=== PATIENT | female | born 1970 | race Caucasian/White ===

== ENCOUNTER 2016-08-10 14:57 | Emergency (ER) | payer BC ==
[~2016-08-10 14:57] MED LIST: /ACETCOD2T PO; /DULO30CA; /ESCI10TA PO; /LOR25TA PO; ANEX75TA PO; BACL10TA2; BUTR10DI2 TD; BUTR5DIS2 TD; CELE-19 PO; CLON-412 PO; CYCL10TA3 PO; CYMB60CA3 PO; DILA2TAB; DUCOLAX; FENT12PA TD; FENT25PA TD; FIBECHW PO; FIBEPOW PO; FISH300C2 PO; FLEXERIL; GABA300C3 PO; HYDR-3565 PO; HYDR4TAB; HYDROCODONE/ACETAMIN; IBUP200T2 PO; IBUP600T; IBUP600T26 PO; IBUP800T OR; IBUP80TA PO; LIDO5DIS; LIDODERM; METAMUCIL; MULTCAP PO; NEUR300C PO; NORC5TAB PO; OPAN10TA16; OTC FIBER PO; OXYC10TA56; OXYC15TA50; OXYCODONE; PROZ10CA; PROZ20CA; PROZ20CA11 PO; SENO8.6T9 PO; SENOKOT S PO; SERT100T; SERT50TA2; SKEL800T5; SOMA350T PO; TPS PAIN TOP; TRAM50TA2; TRAZ50TA; TRAZ50TA2 PO; TRAZ50TA4 PO; VALI2TAB PO; VALI5TAB PO; VICO5TAB; VICO7.5T11 PO; VICODINES TAB; VIIB20TA PO; VOLT1GEL2 TD; XANA0.25; XANA0.5T OR; XANA1TAB2 PO; ZOLO100T PO
--- NOTE | 2016-08-10 15:52 | EDDOCDS ---
Nurse's Notes [facility] Name: Gia Collier Age: 45 yrs Sex: Female : 1970 Arrival Date: 08/10/2016 Time: 14:57 Bed Triage 3 Private MD: No Pcp Diagnosis: Pain in left shoulder Presentation: 08/10 15:01 Presenting complaint: Patient states: Intermittent left shoulder pain for several ld5 months. Pain started to be continuous starting July 26. Seen at urgent care at that time. Pt reports meds given are not helping. Ortho appt on Aug 24. Adult Sepsis Screening: The patient does not have new or worsening altered mentation. Patient's respiratory rate is less than 22. Systolic blood pressure is greater than 100. Patient has a qSOFA score of 0- Negative Sepsis Screen. Suicide/Homicide risk assessment- the patient denies having any suicidal and/or homicidal ideations and does not present with any other emotional, behavioral or mental health complaints. 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 Transition of care: patient was not received from another setting of care. 15:01 Acuity: DINORA Level 4 ld5 15:01 Method Of Arrival: Walkin/Carried/Asstd ld5 Triage Assessment: 15:05 General: Appears in no apparent distress. Pain: Location: left shoulder Pain currently ld5 is 8 out of 10 on a pain scale. Pain began several months ago Is continuous Aggravated by repositioning. HIV screening NA for this visit Offered previously. Neurological: Level of Consciousness is awake, alert. Respiratory: Airway is patent Respiratory effort is even, unlabored. Musculoskeletal: Reports pain with ROM of left shoulder. 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 No active prescriptions but pt has been taking leftover meds - PMHx: Anxiety; Chronic Low Back Pain; Depression; Rheumatoid Arthritis; - PSHx: Appendectomy; marquez rods; Cholecystectomy; Lumbar Fusion; Hysterectomy; - Social history: Smoking status: Patient states was never smoker of tobacco. No barriers to communication noted, The patient speaks fluent Slovak, Speaks appropriately for age. - Family history: Not pertinent. - : The pt / caregiver states he / she is not on anticoagulants. Home medication list is obtained from the patient. - Exposure Risk Screening:: None identified. Screenin:49 Screening information is obtained from the patient. Fall risk: No risks identified. js13 Assistance ADL's: requires no assistance with activities of daily living. Abuse/DV Screen: The patient / caregiver reports he/she is: not in a situation that causes fear, pain or injury. Nutritional screening: No deficits noted. Advance Directives: There is no active DNR order. home support is adequate. Assessment: 15:49 General: Appears in no apparent distress, Behavior is appropriate for age, cooperative. js13 Pain: Pain currently is 4 out of 10 on a pain scale. Neurological: Level of Consciousness is awake, alert. Respiratory: No deficits noted. Derm: Skin is pink, warm & dry. Vital Signs: 15:00 BP 169 / 94; Pulse 93; Resp 16; Temp 98.8(O); Pulse Ox 97% on R/A; Weight 77.11 kg; sew Height 5 ft. 3 in. (160.02 cm); Pain 8/10; 15:48 BP 155 / 92 Sitting (man/reg); jb5 15:00 Body Mass Index 30.11 (77.11 kg, 160.02 cm) [facility] Vitals: 15:00 Log In Time: August 10, 2016 at 14:56. [facility] ED Course: 14:59 Patient visited by Vee Wheatley. sew 14:59 No Pcp is Private Physician. sew 14:59 Patient moved to Waiting sew 15:00 Patient visited by Vee Wheatley. sew 15:00 Patient moved to Pre RCE sew 15:03 Triage Initiated ld5 15:07 Patient visited by Barbara Hamm RN. ld5 15:08 Patient moved to Triage 3 ld5 15:12 Saeid Blakely PA is PHCP. btw 15:12 Trev Del Toro MD is Attending Physician. btw 15:26 Patient visited by Saeid Blakely PA. btw 15:[facility]. btw 15:49 Patient visited by Nataliia Cabrera PCA. jb5 15:49 The patient / caregiver is instructed regarding the plan of care and ED course. js13 15:49 No IV's were initiated during this patient's visit. No procedures done that require js13 assistance. Sling applied to left arm. Patient with positive distal sensation and brisk distal capillary refill after application. 15:51 Patient visited by Nataliia Cabrera PCA. jb5 Order Results: There are currently no results for this order. Outcome: 15:45 Discharge ordered by Provider. btw 15:49 Discharge Assessment: Patient awake, alert and oriented x 3. No cognitive and/or js13 functional deficits noted. Patient verbalized understanding of disposition instructions. patient administered narcotics - no. The following High Risk Discharge criteria are identified: None. Discharged to home ambulatory. Condition: stable. Discharge instructions given to patient, Instructed on discharge instructions, follow up and referral plans. medication usage, Rest, Ice, Compression and Elevation. Demonstrated understanding of instructions, medications, Pt was receptive of discharge instructions/ teaching. Prescriptions given X 1. No special radiology studies were completed. Property :Personal belongings accompany Pt. 15:51 Patient left the ED. js13 Signatures: Nataliia Cabrera PCA CORPORATE TRAVEL COUNSELOR jb5 Saeid Blakely PA PA btw Barbara Hamm,RN RN ld5 Lainey GarciaRN RN js13 Vee Wheatley JORDANA
--- NOTE | 2016-08-10 15:52 | EDDOCDS ---
Physician Documentation [facility] Name: Gia Collier Age: 45 yrs Sex: Female : 1970 Arrival Date: 08/10/2016 Time: 14:57 Bed Triage 3 Private MD: No Pcp Disposition: 08/10/16 15:45 Discharged to Home/Self Care. Impression: Pain in left shoulder. - Condition is Stable. - Discharge Instructions: Shoulder Pain, [id number]. - Prescriptions for Diclofenac Sodium 75 mg Oral Tablet, Delayed Release (E.C.) - take 1 tablet by ORAL route 2 times per day; 30 tablet. - Medication Reconciliation, Local Pharmacy Hours form. - Follow up: Orthopaedics, [facility]; When: Call to arrange an appointment; Reason: Further diagnostic work-up, Recheck today's complaints, Continuance of care. - Problem is an ongoing problem. - Symptoms are unchanged. Historical: - Allergies: Demerol; Tramadol HCl; - Home Meds: 1. No active prescriptions but pt has been taking leftover meds - PMHx: Anxiety; Chronic Low Back Pain; Depression; Rheumatoid Arthritis; - PSHx: Appendectomy; marquez rods; Cholecystectomy; Lumbar Fusion; Hysterectomy; - Social history: Smoking status: Patient states was never smoker of tobacco. No barriers to communication noted, The patient speaks fluent German, Speaks appropriately for age. - Family history: Not pertinent. - : The pt / caregiver states he / she is not on anticoagulants. Home medication list is obtained from the patient. - Exposure Risk Screening:: None identified. 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 3 in. (160.02 cm); Pain 8/10; 15:48 BP 155 / 92 Sitting (man/reg); jb5 15:00 Body Mass Index 30.11 (77.11 kg, 160.02 cm) sew MDM: 15:39 Sling ordered. btw Signatures: Saeid Blakely PA PA btw Barbara Hamm RN RN ld5 Lainey GarciaRN RN js13 JAYLEEND
--- NOTE | 2016-08-14 09:21 | EDDOCDS ---
Physician Documentation [facility] Name: Gia Collier Age: 45 yrs Sex: Female : 1970 Arrival Date: 08/10/2016 Time: 14:57 Bed Triage 3 Private MD: No Pcp Disposition: 08/10/16 15:45 Discharged to Home/Self Care. Impression: Pain in left shoulder. - Condition is Stable. - Discharge Instructions: Shoulder Pain, [id number]. - Prescriptions for Diclofenac Sodium 75 mg Oral Tablet, Delayed Release (E.C.) - take 1 tablet by ORAL route 2 times per day; 30 tablet. - Medication Reconciliation, Local Pharmacy Hours form. - Follow up: Orthopaedics, [facility]; When: Call to arrange an appointment; Reason: Further diagnostic work-up, Recheck today's complaints, Continuance of care. - Problem is an ongoing problem. - Symptoms are unchanged. Historical: - Allergies: Demerol; Tramadol HCl; - Home Meds: 1. No active prescriptions but pt has been taking leftover meds - PMHx: Anxiety; Chronic Low Back Pain; Depression; Rheumatoid Arthritis; - PSHx: Appendectomy; marquez rods; Cholecystectomy; Lumbar Fusion; Hysterectomy; - Social history: Smoking status: Patient states was never smoker of tobacco. No barriers to communication noted, The patient speaks fluent Albanian, Speaks appropriately for age. - Family history: Not pertinent. - : The pt / caregiver states he / she is not on anticoagulants. Home medication list is obtained from the patient. - Exposure Risk Screening:: None identified. 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 3 in. (160.02 cm); Pain 8/10; 15:48 BP 155 / 92 Sitting (man/reg); jb5 15:00 Body Mass Index 30.11 (77.11 kg, 160.02 cm) sew MDM: 15:39 Sling ordered. btw 08/11 09:18 T-Sheet-- Draft Copy was scanned into [employer] and attached to record. [facility] Signatures: Saeid Blakely PA PA btw Dickerson, LauraRN RN ld5 Lainey GarciaRN RN js13 Vee Davenport The chart was reviewed and I authenticate all verbal orders and agree with the evaluation and treatment provided.Attachments: 09:18 T-Sheet-- Draft Copy [facility] Chart Complete MTDD
--- NOTE | 2016-08-14 09:21 | EDDOCDS ---
Physician Documentation [facility] Name: Gia Collier Age: 45 yrs Sex: Female : 1970 Arrival Date: 08/10/2016 Time: 14:57 Bed Triage 3 Private MD: No Pcp Disposition: 08/10/16 15:45 Discharged to Home/Self Care. Impression: Pain in left shoulder. - Condition is Stable. - Discharge Instructions: Shoulder Pain, [id number]. - Prescriptions for Diclofenac Sodium 75 mg Oral Tablet, Delayed Release (E.C.) - take 1 tablet by ORAL route 2 times per day; 30 tablet. - Medication Reconciliation, Local Pharmacy Hours form. - Follow up: Orthopaedics, [facility]; When: Call to arrange an appointment; Reason: Further diagnostic work-up, Recheck today's complaints, Continuance of care. - Problem is an ongoing problem. - Symptoms are unchanged. Historical: - Allergies: Demerol; Tramadol HCl; - Home Meds: 1. No active prescriptions but pt has been taking leftover meds - PMHx: Anxiety; Chronic Low Back Pain; Depression; Rheumatoid Arthritis; - PSHx: Appendectomy; marquez rods; Cholecystectomy; Lumbar Fusion; Hysterectomy; - Social history: Smoking status: Patient states was never smoker of tobacco. No barriers to communication noted, The patient speaks fluent Albanian, Speaks appropriately for age. - Family history: Not pertinent. - : The pt / caregiver states he / she is not on anticoagulants. Home medication list is obtained from the patient. - Exposure Risk Screening:: None identified. 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 3 in. (160.02 cm); Pain 8/10; 15:48 BP 155 / 92 Sitting (man/reg); jb5 15:00 Body Mass Index 30.11 (77.11 kg, 160.02 cm) sew MDM: 15:39 Sling ordered. btw 08/11 09:18 T-Sheet-- Draft Copy was scanned into [employer] and attached to record. [facility] Signatures: Saeid Blakely PA PA btw Dickerson, LauraRN RN ld5 Lainey GarciaRN RN js13 Vee Davenport The chart was reviewed and I authenticate all verbal orders and agree with the evaluation and treatment provided.Attachments: 09:18 T-Sheet-- Draft Copy [facility] Chart Complete MTDD
--- NOTE | 2016-08-14 09:21 | EDDOCDS ---
Nurse's Notes [facility] Name: Gia Collier Age: 45 yrs Sex: Female : 1970 Arrival Date: 08/10/2016 Time: 14:57 Bed Triage 3 Private MD: No Pcp Diagnosis: Pain in left shoulder Presentation: 08/10 15:01 Presenting complaint: Patient states: Intermittent left shoulder pain for several ld5 months. Pain started to be continuous starting July 26. Seen at urgent care at that time. Pt reports meds given are not helping. Ortho appt on Aug 24. Adult Sepsis Screening: The patient does not have new or worsening altered mentation. Patient's respiratory rate is less than 22. Systolic blood pressure is greater than 100. Patient has a qSOFA score of 0- Negative Sepsis Screen. Suicide/Homicide risk assessment- the patient denies having any suicidal and/or homicidal ideations and does not present with any other emotional, behavioral or mental health complaints. 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 Transition of care: patient was not received from another setting of care. 15:01 Acuity: DINORA Level 4 ld5 15:01 Method Of Arrival: Walkin/Carried/Asstd ld5 Triage Assessment: 15:05 General: Appears in no apparent distress. Pain: Location: left shoulder Pain currently ld5 is 8 out of 10 on a pain scale. Pain began several months ago Is continuous Aggravated by repositioning. HIV screening NA for this visit Offered previously. Neurological: Level of Consciousness is awake, alert. Respiratory: Airway is patent Respiratory effort is even, unlabored. Musculoskeletal: Reports pain with ROM of left shoulder. 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 No active prescriptions but pt has been taking leftover meds - PMHx: Anxiety; Chronic Low Back Pain; Depression; Rheumatoid Arthritis; - PSHx: Appendectomy; marquez rods; Cholecystectomy; Lumbar Fusion; Hysterectomy; - Social history: Smoking status: Patient states was never smoker of tobacco. No barriers to communication noted, The patient speaks fluent Thai, Speaks appropriately for age. - Family history: Not pertinent. - : The pt / caregiver states he / she is not on anticoagulants. Home medication list is obtained from the patient. - Exposure Risk Screening:: None identified. Screenin:49 Screening information is obtained from the patient. Fall risk: No risks identified. js13 Assistance ADL's: requires no assistance with activities of daily living. Abuse/DV Screen: The patient / caregiver reports he/she is: not in a situation that causes fear, pain or injury. Nutritional screening: No deficits noted. Advance Directives: There is no active DNR order. home support is adequate. Assessment: 15:49 General: Appears in no apparent distress, Behavior is appropriate for age, cooperative. js13 Pain: Pain currently is 4 out of 10 on a pain scale. Neurological: Level of Consciousness is awake, alert. Respiratory: No deficits noted. Derm: Skin is pink, warm & dry. Vital Signs: 15:00 BP 169 / 94; Pulse 93; Resp 16; Temp 98.8(O); Pulse Ox 97% on R/A; Weight 77.11 kg; sew Height 5 ft. 3 in. (160.02 cm); Pain 8/10; 15:48 BP 155 / 92 Sitting (man/reg); jb5 15:00 Body Mass Index 30.11 (77.11 kg, 160.02 cm) [facility] Vitals: 15:00 Log In Time: August 10, 2016 at 14:56. [facility] ED Course: 14:59 Patient visited by Vee Wheatley. sew 14:59 No Pcp is Private Physician. sew 14:59 Patient moved to Waiting sew 15:00 Patient visited by Vee Wheatley. sew 15:00 Patient moved to Pre RCE sew 15:03 Triage Initiated ld5 15:07 Patient visited by Barbara Hamm RN. ld5 15:08 Patient moved to Triage 3 ld5 15:12 Saeid Blakely PA is PHCP. btw 15:12 Trev Del Toro MD is Attending Physician. btw 15:26 Patient visited by Saeid Blakely PA. btw 15:45 [facility]. btw 15:49 Patient visited by Nataliia Cabrera PCA. jb5 15:49 The patient / caregiver is instructed regarding the plan of care and ED course. js13 15:49 No IV's were initiated during this patient's visit. No procedures done that require js13 assistance. Sling applied to left arm. Patient with positive distal sensation and brisk distal capillary refill after application. 15:51 Patient visited by Nataliia Cabrera PCA. jb5 08/11 09:18 T-Sheet-- Draft Copy was scanned into [employer] and attached to record. [facility] Order Results: There are currently no results for this order. Outcome: 08/10 15:45 Discharge ordered by Provider. bt 15:49 Discharge Assessment: Patient awake, alert and oriented x 3. No cognitive and/or [facility] functional deficits noted. Patient verbalized understanding of disposition instructions. patient administered narcotics - no. The following High Risk Discharge criteria are identified: None. Discharged to home ambulatory. Condition: stable. Discharge instructions given to patient, Instructed on discharge instructions, follow up and referral plans. medication usage, Rest, Ice, Compression and Elevation. Demonstrated understanding of instructions, medications, Pt was receptive of discharge instructions/ teaching. Prescriptions given X 1. No special radiology studies were completed. Property :Personal belongings accompany Pt. 15:51 Patient left the ED. js13 Signatures: Nataliia Cabrera PCA YOUTH SUPPORT WORKER jb5 Saeid Blakely PA PA btw Barbara Hamm,RN RN ld5 Lainey Garcia,RN RN js13 Dioni, Vee Herbert Chart Complete [facility]
== END 2016-08-10 15:51 | disposition home or self-care (01) ==
LOC: M ED 14:57
DX: M25.512 Pain in left shoulder (principal); F41.9 Anxiety disorder, unspecified; G89.29 Other chronic pain; M54.5 Low back pain; F32.9 Major depressive disorder, single episode, unspecified; M06.9 Rheumatoid arthritis, unspecified; Z88.5 Allergy status to narcotic agent

== ENCOUNTER → 2017-03-19 | Outpatient (CLI) | payer BC ==
[~2017-03-19] MED LIST changes: -CELE-19 PO; +CELE1CAP4 PO; +GABA-282 PO; -GABA300C3 PO; -HYDR-3565 PO; +HYDR-3719 PO; +IBUP-1022 PO; -IBUP600T26 PO; +NORC1TAB4 PO; -NORC5TAB PO; +TRAZ50TA11 PO; -TRAZ50TA4 PO
--- NOTE | 2017-03-19 12:20 | REPMRS ---
Patient History The patient states she has not had a clinical breast exam in over a year. Family history of breast cancer in 3 paternal aunts at age 50 or over. Prior mammogram done at [facility] Bilateral: March 19, 2017 - Exam #: [id number] Bilateral CC and MLO view(s) were taken. Technologist: Lainey Luong, Technologist FINDINGS: There are scattered fibroglandular densities. There has been no change in the appearance of the mammogram from the prior studies. There is a mild amount of residual fibroglandular tissue which is fairly symmetric. There is no interval development of dominant mass, architectural distortion, or clustered microcalcification suggestive of malignancy. ASSESSMENT: BI-RADS/ACR category 1 mammogram. Negative. Recommendation Routine screening mammogram in 1 year (for women over age 40). This mammogram was interpreted with the aid of an FDA-approved computer-aided dectection system. Electronically Signed By: Alejandro uLna MD 03/19/17 [id number]
== END ==
LOC: M RAD 11:52
PROVIDERS: ATTEND Physician Assistant
DX: N64.4 Mastodynia (principal); Z80.3 Family history of malignant neoplasm of breast

== ENCOUNTER → 2017-04-06 | Outpatient (CLI) | payer BC ==
[~2017-04-06] MED LIST changes: +DULO1CAP PO; +GABA-279 PO; +LEVO50TA5 PO; +LISI-538 PO; +OMEP20CA3 PO; +TRAM100T18
[2017-04-06 11:17] LABS: BASO % 0.5 % (0.0-1.0); EOS # 0.2 K/mm3 (0.0-0.50); EOS % 2.9 % (0.0-3.0); LYMPH # 2.4 K/mm3 (1.5-4.5); LYMPH % 29.3 % (24.0-44.0); MEAN CORPUSCULAR HEMOGLOBIN 31.1 pg (27.0-33.0); MEAN CORPUSCULAR HGB CONC 33.6 g/dl (32.0-36.5); MEAN CORPUSCULAR VOLUME 92.5 fl (80.0-96.0); MONO # 0.5 K/mm3 (0.0-0.8); MONO % 6.6 % (0.0-5.0); NEUTROPHILS # 4.6 K/mm3 (1.8-7.7); NEUTROPHILS % 59.4 % (36.0-66.0); RED CELL DISTRIBUTION WIDTH 13.5 % (11.5-14.5); WHITE BLOOD COUNT 7.8 K/mm3 (4.0-10.0)
[2017-04-06 11:45] LABS: ALBUMIN 3.6 GM/DL (3.2-5.2); ALBUMIN/GLOBULIN RATIO 0.95 (1.00-1.93); ALKALINE PHOSPHATASE 87 U/L (45-117); ALT/SGPT 32 U/L (12-78); ANION GAP 8 MEQ/L (8-16); AST/SGOT 19 U/L (15-37); BILIRUBIN,TOTAL 0.5 MG/DL (0.2-1.0); BLOOD UREA NITROGEN 13 MG/DL (7-18); CALCIUM LEVEL 8.9 MG/DL (8.5-10.1); CARBON DIOXIDE LEVEL 29 MEQ/L (21-32); CHLORIDE LEVEL 105 MEQ/L (98-107); CHOLESTEROL LEVEL 203 MG/DL (<200); CREATININE FOR GFR 0.84 MG/DL (0.55-1.02); FREE T4 1.02 NG/DL (0.76-1.46); GLOMERULAR FILTRATION RATE > 60.0 (>58); GLUCOSE, FASTING 92 MG/DL (70-105); POTASSIUM SERUM 4.1 MEQ/L (3.5-5.1); SODIUM LEVEL 142 MEQ/L (136-145); TOTAL PROTEIN 7.4 GM/DL (6.4-8.2); TRIGLYCERIDES LEVEL 231 MG/DL (<150)
[2017-04-07 07:26] LABS: CONTROL LINE HPYORI INT CTR LINE PRESENT
== END ==
LOC: M LAB 10:13
PROVIDERS: ATTEND Physician Assistant
DX: I10 Essential (primary) hypertension (principal); K21.9 Gastro-esophageal reflux disease without esophagitis; M54.2 Cervicalgia

== ENCOUNTER 2017-06-25 11:35 | Day surgery (SDC) | payer BC ==
[~2017-06-25] VITALS: Ht 167.6 cm; Wt 76.7 kg
[~2017-06-25 11:35] MED LIST changes: -TRAM100T18; +TRAM100T18 PO
[2017-06-25] MEDS ORDERED: PROPOFOL 200 MG/20 ML VIAL As Ordered ONE (12:26)
[2017-06-25] MEDS ORDERED: fentaNYL 100 MCG/2 ML INJECTION (J3010) As Ordered ONE ×2 (12:26→12:27)
[2017-06-25] MEDS ORDERED: ONDANSETRON 4MG/2ML VIAL (J2405) As Ordered ONE (12:29)
--- NOTE | 2017-06-25 13:04 | ROOR ---
Patient Name: Gia Collier Procedure Date: 06/25/2017 12:27 PM Date of : 1970 Age: 46 Room: [facility] Gender: Female Note Status: Finalized Procedure: Colonoscopy Indications: Iron deficiency anemia, Change in bowel habits, Constipation Providers: Josué Lynch MD Referring MD: Mae PHILLIPS DO Requesting Provider: Medicines: Monitored Anesthesia Care Complications: No immediate complications. Procedure: Pre-Anesthesia Assessment: - Prior to the procedure, a History and Physical was performed, and patient medications and allergies were reviewed. The patient is competent. The risks and benefits of the procedure and the sedation options and risks were discussed with the patient. All questions were answered and informed consent was obtained. Patient identification and proposed procedure were verified by the physician, the nurse and the anesthesiologist in the pre-procedure area. Mental Status Examination: alert and oriented. Airway Examination: normal oropharyngeal airway and neck mobility. Respiratory Examination: clear to auscultation. CV Examination: normal. Prophylactic Antibiotics: The patient does not require prophylactic antibiotics. Prior Anticoagulants: The patient has taken no previous anticoagulant or antiplatelet agents. ASA Grade Assessment: III - A patient with severe systemic disease. After reviewing the risks and benefits, the patient was deemed in satisfactory condition to undergo the procedure. The anesthesia plan was to use monitored anesthesia care (MAC). Immediately prior to administration of medications, the patient was re-assessed for adequacy to receive sedatives. The heart rate, respiratory rate, oxygen saturations, blood pressure, adequacy of pulmonary ventilation, and response to care were monitored throughout the procedure. The physical status of the patient was re-assessed after the procedure. The Colonoscope was introduced through the anus with the intention of advancing to the cecum. The scope was advanced to the sigmoid colon before the procedure was aborted. Medications were given. The colonoscopy was performed without difficulty. The patient tolerated the procedure well. The quality of the bowel preparation was unsatisfactory. No anatomical landmarks were photographed. Scope insertion time was 3 minutes. Scope withdrawal time was 3 minutes. The total duration of the procedure was 6 minutes. Findings: The perianal and digital rectal examinations were normal. A large amount of solid stool was found from rectum to sigmoid colon, precluding visualization. Impression: - Preparation of the colon was unsatisfactory. - Stool from rectum to sigmoid colon. - No specimens collected. Recommendation: - Patient has a contact number available for emergencies. The signs and symptoms of potential delayed complications were discussed with the patient. Return to normal activities tomorrow. Written discharge instructions were provided to the patient. - Resume previous diet. - Continue present medications. - Repeat colonoscopy in 3 months because the bowel preparation was poor. - Return to GI clinic as previously scheduled on 07/10/2017 at 11:15 AM. - Return to primary care physician. Josué Lynch MD Josué Lynch MD 06/25/2017 1:04:13 PM This report has been signed electronically. Number of Addenda: 0 Note Initiated On: 06/25/2017 12:27 PM Estimated Blood Loss: Estimated blood loss: none.
--- NOTE | 2017-06-25 13:44 | ROOR ---
Patient Name: Gia Collier Procedure Date: 06/25/2017 12:27 PM Date of : 1970 Age: 46 Room: [facility] Gender: Female Note Status: Finalized Procedure: Upper GI endoscopy Indications: Dysphagia, Esophageal reflux symptoms that persist despite appropriate therapy Providers: Josué Lynch MD Referring MD: Mae PHILLIPS DO Requesting Provider: Medicines: Monitored Anesthesia Care Complications: No immediate complications. Procedure: Pre-Anesthesia Assessment: - Prior to the procedure, a History and Physical was performed, and patient medications and allergies were reviewed. The patient is competent. The risks and benefits of the procedure and the sedation options and risks were discussed with the patient. All questions were answered and informed consent was obtained. Patient identification and proposed procedure were verified by the physician, the nurse and the compressor repairer in the procedure room. Mental Status Examination: alert and oriented. Airway Examination: normal oropharyngeal airway and neck mobility. Respiratory Examination: clear to auscultation. CV Examination: normal. Prophylactic Antibiotics: The patient does not require prophylactic antibiotics. Prior Anticoagulants: The patient has taken no previous anticoagulant or antiplatelet agents. ASA Grade Assessment: III - A patient with severe systemic disease. After reviewing the risks and benefits, the patient was deemed in satisfactory condition to undergo the procedure. The anesthesia plan was to use monitored anesthesia care (MAC). Immediately prior to administration of medications, the patient was re-assessed for adequacy to receive sedatives. The heart rate, respiratory rate, oxygen saturations, blood pressure, adequacy of pulmonary ventilation, and response to care were monitored throughout the procedure. The physical status of the patient was re-assessed after the procedure. The Endoscope was introduced through the mouth, and advanced to the second part of duodenum. The upper GI endoscopy was accomplished without difficulty. The patient tolerated the procedure well. Findings: Savary-Prescott Grade III (circumferential lesion, erosive or exudative) esophagitis with no bleeding was found in the lower third of the esophagus. Biopsies were taken with a cold forceps for histology. Verification of patient identification for the specimen was done by the physician and nurse using the patient's name, date and medical record number. Estimated blood loss was minimal. A medium-sized hiatal hernia was present. Diffuse mildly erythematous mucosa without bleeding was found in the gastric antrum. Biopsies were taken with a cold forceps for Helicobacter pylori testing. The duodenal bulb and second portion of the duodenum were normal. Biopsies for histology were taken with a cold forceps for evaluation of celiac disease. Impression: - Savary-Prescott Grade III reflux esophagitis. Biopsied. - Medium-sized hiatal hernia. - Erythematous mucosa in the antrum. Biopsied. - Normal duodenal bulb and second portion of the duodenum. Biopsied. Recommendation: - Patient has a contact number available for emergencies. The signs and symptoms of potential delayed complications were discussed with the patient. Return to normal activities tomorrow. Written discharge instructions were provided to the patient. - Resume previous diet. - Continue present medications. - Use Protonix (pantoprazole) 40 mg PO twice daily - to be taken in morning (1/2 hour before breakfast) and at bedtime ( atleast 3 hours after last meal) for 3 months. - Repeat upper endoscopy in 3 months to check healing. - Await pathology results. - Return to GI clinic as previously scheduled on 07/10/2017 at 11:15 AM. - Return to primary care physician. Josué Lynch MD Josué Lynch MD 06/25/2017 1:43:54 PM This report has been signed electronically. Number of Addenda: 0 Note Initiated On: 06/25/2017 12:27 PM Estimated Blood Loss: Estimated blood loss was minimal.
[2017-06-25 13:48] VITALS: BP 116/75
== END 2017-06-25 13:50 | disposition home or self-care (01) ==
LOC: M OPP 11:35
PROVIDERS: ATTEND Internal Medicine Gastroenterology
DX: D50.9 Iron deficiency anemia, unspecified (principal); K59.00 Constipation, unspecified; R13.10 Dysphagia, unspecified; K31.89 Other diseases of stomach and duodenum; K44.9 Diaphragmatic hernia without obstruction or gangrene; K21.0 Gastro-esophageal reflux disease with esophagitis; I10 Essential (primary) hypertension; E03.9 Hypothyroidism, unspecified; R12 Heartburn; M19.90 Unspecified osteoarthritis, unspecified site; M54.9 Dorsalgia, unspecified; M79.7 Fibromyalgia; M25.60 Stiffness of unspecified joint, not elsewhere classified; F41.9 Anxiety disorder, unspecified; F32.9 Major depressive disorder, single episode, unspecified; R51 Headache; R56.9 Unspecified convulsions; Z80.3 Family history of malignant neoplasm of breast; Z80.8 Family history of malignant neoplasm of other organs or systems; Z88.5 Allergy status to narcotic agent; Z79.899 Other long term (current) drug therapy
CPT/HCPCS: 43239; 45378; 88305; J2405; J3010

== ENCOUNTER 2017-07-17 17:09 | Emergency (ER) | payer BC ==
[~2017-07-17] VITALS: Ht 162.6 cm; Wt 81.8 kg
[2017-07-17] MEDS ORDERED: NS 1,000 ML IV SCH (17:38)
[2017-07-17] MEDS ORDERED: SUCR1TAB56 PO (17:38)
[2017-07-17] MEDS ORDERED: PANT40TA2 PO (17:38)
[2017-07-17 18:17] LABS: BASO # 0.1 10^3/uL (0.0-0.2); BASO % 0.7 % (0.0-1.0); EOS # 0.2 10^3/uL (0.0-0.50); EOS % 2.7 % (0.0-3.0); IMMATURE GRANULOCYTE % 0.4 % (0-0); LYMPH % 25.1 % (24.0-44.0); MEAN CORPUSCULAR HEMOGLOBIN 30.5 pg (27.0-33.0); MEAN CORPUSCULAR HGB CONC 32.7 g/dl (32.0-36.5); MEAN CORPUSCULAR VOLUME 93.3 fl (80.0-96.0); MONO # 0.5 10^3/uL (0.0-0.8); MONO % 6.7 % (0.0-5.0); NEUTROPHILS # 5.2 10^3/uL (1.8-7.7); NEUTROPHILS % 64.4 % (36.0-66.0); PLATELET COUNT, AUTOMATED 352 10^3/uL (150-450); RED CELL DISTRIBUTION WIDTH 13.2 % (11.5-14.5); WHITE BLOOD COUNT 8.1 10^3/uL (4.0-10.0)
[2017-07-17 18:34] LABS: MUCUS, URINE RFX SMALL (NEGATIVE); SPECIFIC GRAVITY UR AUTO RFX 1.015 (1.002-1.035); SQUAM EPITHELIAL CELL UR AURFX 5 /HPF (0-6)
[2017-07-17 18:36] LABS: ALBUMIN 3.9 GM/DL (3.2-5.2); ALBUMIN/GLOBULIN RATIO 0.91 (1.00-1.93); ALKALINE PHOSPHATASE 108 U/L (45-117); ALT/SGPT 59 U/L (12-78); ANION GAP 9 MEQ/L (8-16); AST/SGOT 34 U/L (7-37); BILIRUBIN,DIRECT 0.1 MG/DL (0.0-0.2); BILIRUBIN,TOTAL 0.3 MG/DL (0.2-1.0); BLOOD UREA NITROGEN 15 MG/DL (7-18); CALCIUM LEVEL 8.9 MG/DL (8.5-10.1); CARBON DIOXIDE LEVEL 25 MEQ/L (21-32); CHLORIDE LEVEL 101 MEQ/L (98-107); CREATININE FOR GFR 0.89 MG/DL (0.55-1.02); GLOMERULAR FILTRATION RATE > 60.0 (>58); GLUCOSE, FASTING 96 MG/DL (70-105); MAGNESIUM LEVEL 2.3 MG/DL (1.8-2.4); PHOSPHORUS LEVEL 1.5 MG/DL (2.5-4.9); POTASSIUM SERUM 3.9 MEQ/L (3.5-5.1); SODIUM LEVEL 135 MEQ/L (136-145); TOTAL PROTEIN 8.2 GM/DL (6.4-8.2)
--- NOTE | 2017-07-17 18:40 | REPUSA ---
HISTORY: Trauma. COMPARISON: No relevant comparison is available at the time of interpretation. Total DLP head and C-spine 1201.3 mGy*cm CT C-SPINE with reformations: C1 through T1: Neural rings intact without fracture. Dens intact. Central canal: Cervical spondylosis from C3-4 through C6-7 which produces chronic narrowing of the ce ntral canal and neural foramina. There is facet arthrosis at C7-T1. Alignment (by reformations): No significant listhesis. IMPRESSION: Degenerative spondylosis from C3-4 through C6-7 without acute fracture.
[2017-07-17 18:44] LABS: METHADONE URINE NEGATIVE (NEGATIVE)
[2017-07-17] MEDS ORDERED: NEUTRA-PHOS 1.25 GM PACKET PO ONE (18:45)
--- NOTE | 2017-07-17 18:50 | REPUSA ---
HISTORY: Trauma. COMPARISON: April 10, 2009. Total DLP head and C-spine 1201.3 mGy*cm TECHNIQUE: Head CT without contrast Brain: No intracranial hemorrhage or parenchymal edema. Calvarium: No depressed fractures. Sinuses (partially visualized): No hemorrhage fluid levels. IMPRESSION: No intracranial hemorrhage or fracture.
--- NOTE | 2017-07-17 19:10 | REPUSA ---
HISTORY: Trauma. COMPARISON: December 24, 2008. Total DLP 483.3 mGy*cm CT L-SPINE with reformations: L1 through S1: Patient is status post scoliosis repair, without acute fracture. Vertebral body height s normal, without compression fracture. Central canal: Patent without encroachment. Neural foramina: Chronic neural foraminal narrowing at L4-5 and L5-S1 Alignment (by reformations): Moderate levoscoliosis centered at L2-3, with right sided Aden josef extending from T10 to L4. IMPRESSION: Moderate levoscoliosis with Aden josef fusion, without acute fracture. Compared to December 2008 exam, there has been L4-5 and L5-S1 anterior fusion.
--- NOTE | 2017-07-17 19:46 | REP ---
CHEST PORTABLE, SINGLE VIEW: Single view of the chest is performed. Prior study of 01/25/2011. There is poor ventilation of mild discoid atelectasis. Heart is normal in size. There is no acute infiltrate. Mediastinal silhouette is unremarkable and unchanged. IMPRESSION: No acute infiltrate. Signed by Alejandro Luna MD 07/18/2017 09:19 A
[2017-07-17 20:15] VITALS: BP 170/100
--- NOTE | 2017-07-18 04:48 | ECGEPIP ---
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
== END 2017-07-17 20:24 | disposition home or self-care (01) ==
LOC: EDBD 17:09 → M ED 17:09
DX: R56.9 Unspecified convulsions (principal); I10 Essential (primary) hypertension; M51.36 Other intervertebral disc degeneration, lumbar region; G89.29 Other chronic pain; D50.9 Iron deficiency anemia, unspecified; M79.7 Fibromyalgia; M06.9 Rheumatoid arthritis, unspecified; Z79.899 Other long term (current) drug therapy; Z88.8 Allergy status to other drugs, medicaments and biological substances; Z98.890 Other specified postprocedural states

== ENCOUNTER → 2017-12-17 | Outpatient (CLI) | payer BC | LOC: M RAD 15:37 | DX: M54.2 Cervicalgia (principal); M41.34 Thoracogenic scoliosis, thoracic region; M54.5 Low back pain; M47.812 Spondylosis without myelopathy or radiculopathy, cervical region; M51.27 Other intervertebral disc displacement, lumbosacral region | CPT/HCPCS: 72131 ==

== ENCOUNTER → 2018-05-23 | Outpatient (CLI) | payer BC | LOC: M PAIN 10:30 | DX: M54.2 Cervicalgia (principal); M79.18 Myalgia, other site; M47.812 Spondylosis without myelopathy or radiculopathy, cervical region; M25.551 Pain in right hip; M70.61 Trochanteric bursitis, right hip; F33.0 Major depressive disorder, recurrent, mild; F40.01 Agoraphobia with panic disorder; I10 Essential (primary) hypertension; M19.90 Unspecified osteoarthritis, unspecified site; K21.9 Gastro-esophageal reflux disease without esophagitis; Z79.899 Other long term (current) drug therapy; Z88.5 Allergy status to narcotic agent | CPT/HCPCS: G0463 ==

== ENCOUNTER → 2019-01-23 | Outpatient (CLI) | payer BC ==
[~2019-01-23] MED LIST changes: -/ACETCOD2T PO; -/DULO30CA; -/ESCI10TA PO; +ACET1TAB15 PO; +CYMB1CAP5; +FENT12DI12 TD; -FENT12PA TD; +FENT25DI33 TD; -FENT25PA TD; +GABA-1171 PO; -GABA-279 PO; -GABA-282 PO; +GABA-843 PO; +LEXA1TAB PO; -NORC1TAB4 PO; +NORC1TAB7 PO; +PANT40TA3 PO; +SUCR1TAB56 PO; +TRAZ-252 PO; -TRAZ50TA11 PO
[2019-01-23 12:04] LABS: ALBUMIN 3.5 GM/DL (3.2-5.2); ALT/SGPT 34 U/L (12-78); BILIRUBIN,TOTAL 0.2 MG/DL (0.2-1.0); BLOOD UREA NITROGEN 13 MG/DL (7-18); CARBON DIOXIDE LEVEL 27 MEQ/L (21-32); CHLORIDE LEVEL 107 MEQ/L (98-107); CHOLESTEROL LEVEL 153 MG/DL (<200); CHOLESTEROL RISK RATIO 4.135 (<5); CREATININE FOR GFR 0.74 MG/DL (0.55-1.30); FREE T4 0.83 NG/DL (0.76-1.46); GLOMERULAR FILTRATION RATE > 60.0 (>58); GLUCOSE, FASTING 91 MG/DL (70-100); HDL CHOLESTEROL 37 MG/DL (>40); LDL CHOLESTEROL 81 MG/DL (<100); NON-HDL-C 116 MG/DL; POTASSIUM SERUM 4.1 MEQ/L (3.5-5.1); SODIUM LEVEL 142 MEQ/L (136-145); TOTAL PROTEIN 7.2 GM/DL (6.4-8.2); TRIGLYCERIDES LEVEL 176 MG/DL (<150)
== END ==
LOC: M LAB 10:19
PROVIDERS: ATTEND Physician Assistant
DX: I10 Essential (primary) hypertension (principal)

== ENCOUNTER → 2019-05-23 | Outpatient (CLI) | payer BC ==
[~2019-05-23] MED LIST changes: -DULO1CAP PO; +DULO1CAP4 PO; -OMEP20CA3 PO; +OMEP20CA4 PO
--- NOTE | 2019-05-23 13:57 | REP ---
Pelvis left hip: Three views. History: Left hip pain. Chronic left hip pain. Acutely worsening over last week. Findings: Postoperative changes are seen in the lumbosacral junction. AP view of the pelvis shows an intact bony pelvic ring. There is spurring of the SI joints and minimal symphysis pubis spurring is seen. There is bilateral acetabular osteophyte formation consistent with hip osteoarthritis. AP and frog-leg views of the left hip show no evidence of fracture or erosive change. Impression: Osteoarthritic changes. No acute bony abnormality. Electronically Signed by Von James MD 05/23/2019 01:49 P
== END ==
LOC: M WUC 13:28
PROVIDERS: ATTEND Physician Assistant
DX: M25.552 Pain in left hip (principal)

== ENCOUNTER → 2020-03-17 | Outpatient (REF) | payer BC ==
[~2020-03-17] MED LIST changes: +OMEP1CAP73 PO; -OMEP20CA4 PO; +PANT40TA29 PO; -PANT40TA3 PO
== END ==
LOC: M LAB REF 08:07
PROVIDERS: ATTEND Physician Assistant
DX: J02.9 Acute pharyngitis, unspecified (principal)

== ENCOUNTER → 2020-07-08 | Outpatient (CLI) | payer BC ==
--- NOTE | 2020-07-09 08:27 | REPVR ---
PROCEDURE INFORMATION: Exam: MR Cervical Spine Without and With Contrast Exam date and time: 07/09/2020 1:56 AM Age: 49 years old Clinical indication: Neck pain TECHNIQUE: Imaging protocol: Multiplanar magnetic resonance images of the cervical spine without and with intravenous contrast. Contrast material: PROHANCE; Contrast volume: 19 ml; Contrast route: INTRAVENOUS (IV); COMPARISON: CT Spine,cervical w/o contrast 12/17/2017 3:45 PM FINDINGS: Vertebrae: Unremarkable. Spinal cord: Normal signal. C2-C3: There is disc desiccation. C3-C4: There is disc space narrowing and desiccation. There are moderate degenerative end plate changes at this level. There is a moderate disc/osteophyte complex that flattens the ventral thecal sac. There is moderate bilateral uncovertebral joint arthropathy. There is mild bilateral neuroforaminal narrowing. There is mild spinal canal stenosis. C4-C5: There is disc space narrowing and desiccation. There are moderate degenerative end plate changes at this level. There is a moderate disc/osteophyte complex, partial toward the right, that flattens the ventral thecal sac and compromises the right neural foramen. There is moderate bilateral uncovertebral joint arthropathy. There is mild bilateral neuroforaminal narrowing. There is mild spinal canal stenosis. C5-C6: There is disc space narrowing and desiccation. There are moderate degenerative end plate changes at this level. There is a moderate disc/osteophyte complex that flattens the ventral thecal sac. There is moderate bilateral uncovertebral joint arthropathy. There is mild bilateral neuroforaminal narrowing. C6-C7: There is a moderate disc/osteophyte complex, partial toward the left, that flattens the ventral thecal sac and compromises the left neural foramen. There is effacement of the ventral subarachnoid space and indentation of the ventral cervical cord. There is bilateral uncovertebral joint arthropathy, worse on the left. There is mild bilateral neuroforaminal narrowing, left worse than right. C7-T1: There is disc desiccation. There is no abnormal enhancement. IMPRESSION: Multilevel degenerative changes with variable degrees of spinal canal and neuroforaminal narrowing. Please see details above. Electronically signed by: Jimmy Samuels On 07/09/2020 08:27:59 AM
== END ==
LOC: M RAD 11:03
DX: M50.31 Other cervical disc degeneration, high cervical region (principal); M50.321 Other cervical disc degeneration at C4-C5 level; M50.322 Other cervical disc degeneration at C5-C6 level; M50.323 Other cervical disc degeneration at C6-C7 level

== ENCOUNTER → 2020-08-11 | Outpatient (CLI) | payer BC | LOC: M LABSMTC 11:15 | PROVIDERS: ATTEND Family Medicine | DX: Z20.822 Contact with and (suspected) exposure to COVID-19 (principal) ==

== ENCOUNTER → 2020-08-24 | Outpatient (CLI) | payer BC ==
[~2020-08-24] MED LIST changes: +GABA-282 PO; -GABA-843 PO; -LISI-538 PO; +LISI20TA33 PO
[2020-08-24 13:37] LABS: BASO # 0.1 10^3/uL (0.0-0.2); BASO % 0.8 % (0.0-1.0); EOS # 0.2 10^3/uL (0.0-0.5); EOS % 3.9 % (0.0-3.0); HEMATOCRIT 34.2 % (36.0-47.0); HEMOGLOBIN 10.6 g/dl (12.0-15.5); LYMPH # 1.9 10^3/uL (1.5-5.0); MEAN CORPUSCULAR HEMOGLOBIN 27.7 pg (27.0-33.0); MEAN CORPUSCULAR VOLUME 89.5 fl (80.0-96.0); MONO # 0.5 10^3/uL (0.0-0.8); MONO % 8.9 % (0.0-5.0); NEUTROPHILS # 3.3 10^3/uL (1.5-8.5); NEUTROPHILS % 55.2 % (36.0-66.0); PLATELET COUNT, AUTOMATED 315 10^3/uL (150-450); RED BLOOD COUNT 3.82 10^6/uL (4.00-5.40)
[2020-08-24 14:09] LABS: ALBUMIN 3.8 GM/DL (3.2-5.2); ALT/SGPT 23 U/L (12-78); BILIRUBIN,TOTAL 0.3 MG/DL (0.2-1.0); BLOOD UREA NITROGEN 11 MG/DL (7-18); CALCIUM LEVEL 9.4 MG/DL (8.5-10.1); CARBON DIOXIDE LEVEL 27 MEQ/L (21-32); CHLORIDE LEVEL 104 MEQ/L (98-107); CHOLESTEROL LEVEL 208 MG/DL (<200); CHOLESTEROL RISK RATIO 5.777 (<5); CREATININE FOR GFR 0.82 MG/DL (0.55-1.30); FREE T4 0.88 NG/DL (0.76-1.46); GLOMERULAR FILTRATION RATE > 60.0 (>58); GLUCOSE, FASTING 106 MG/DL (70-100); HDL CHOLESTEROL 36 MG/DL (>40); LDL CHOLESTEROL 99 MG/DL (<100); NON-HDL-C 172 MG/DL; POTASSIUM SERUM 4.2 MEQ/L (3.5-5.1); SODIUM LEVEL 136 MEQ/L (136-145); TOTAL PROTEIN 7.8 GM/DL (6.4-8.2); TRIGLYCERIDES LEVEL 363 MG/DL (<150)
== END ==
LOC: M LAB 12:36
PROVIDERS: ATTEND Physician Assistant
DX: Z00.00 Encounter for general adult medical examination without abnormal findings (principal)

== ENCOUNTER → 2020-10-21 | Outpatient (REF) | payer BC ==
[2020-10-21 22:02] LABS: INFLUENZA A AMPLIFICATION NEGATIVE (NEGATIVE); INFLUENZA B AMPLIFICATION NEGATIVE (NEGATIVE)
== END ==
LOC: M LAB REF 21:07
PROVIDERS: ATTEND Physician Assistant
DX: R05 Cough (principal); M79.10 Myalgia, unspecified site

== ENCOUNTER → 2020-11-04 | Outpatient (CLI) | payer BC | LOC: M WHC 12:43 | PROVIDERS: ATTEND Physician Assistant | DX: Z12.31 Encounter for screening mammogram for malignant neoplasm of breast (principal); Z53.9 Procedure and treatment not carried out, unspecified reason ==

== ENCOUNTER → 2020-11-25 | Outpatient (CLI) | payer BC ==
--- NOTE | 2020-11-25 11:02 | REP ---
INDICATION: N64.4 GLENN DIAG MAMMO/MASTODYNIA; GLENN BREAST U/S/MASTODYNIA. Patient reports bilateral inferior breast pain pump, particularly on the right intermittently over the last 6 months. COMPARISON: Mammography reviewed dated January 20, 2019, March 19, 2017, and October 15, 2013. TECHNIQUE: Bilateral CC and MLO) view(s) were taken. 3D my mammography was acquired bilaterally and targeted bilateral breast sonography is performed. FINDINGS: Breast parenchyma is predominantly fat replaced. No dominant density is seen in either breast. No micro calcific grouping or architectural distortion is seen. No worrisome skin changes appreciated. 3D mammography images show no additional abnormality. Normal appearing lymph nodes are seen in each axilla unchanged. The Volpara volumetric breast density pattern is a Targeted bilateral breast sonography: The inferior half of each breast is scanned, 3:00 to 9:00. Fairly homogeneous fibroglandular echotexture is seen bilaterally. No cyst, mass, acoustic shadowing or other notable finding by ultrasound.. IMPRESSION: BIRADS/ACR category 1 negative mammogram and ultrasound findings. This patient's Tyrer-Cuzick lifetime breast cancer risk assessment score is 12.1%. This mammogram was interpreted with the aid of an FDA-approved computer-aided detection system. The patient states she had a clinical breast exam in over a year ago. The patient letter being requested is M1. RECOMMENDATION: Repeat screening mammography recommended 1 year (for women over 40). <Electronically signed by Zay James > 11/25/20 [id number]
== END ==
LOC: M WHC 09:04
PROVIDERS: ATTEND Physician Assistant
DX: N64.4 Mastodynia (principal)

== ENCOUNTER → 2021-01-06 | Outpatient (CLI) | payer BC ==
[2021-01-06 13:35] LABS: BASO # 0.1 10^3/uL (0.0-0.2); BASO % 1.3 % (0.0-1.0); EOS # 0.4 10^3/uL (0.0-0.5); EOS % 6.6 % (0.0-3.0); HEMATOCRIT 35.5 % (36.0-47.0); HEMOGLOBIN 10.7 g/dl (12.0-15.5); LYMPH # 2.2 10^3/uL (1.5-5.0); MEAN CORPUSCULAR HEMOGLOBIN 27.5 pg (27.0-33.0); MEAN CORPUSCULAR HGB CONC 30.1 g/dl (32.0-36.5); MEAN CORPUSCULAR VOLUME 91.3 fl (80.0-96.0); MONO # 0.5 10^3/uL (0.0-0.8); MONO % 9.2 % (2.0-8.0); NEUTROPHILS # 2.3 10^3/uL (1.5-8.5); NEUTROPHILS % 42.3 % (36.0-66.0); PLATELET COUNT, AUTOMATED 389 10^3/uL (150-450); RED BLOOD COUNT 3.89 10^6/uL (4.00-5.40); WHITE BLOOD COUNT 5.5 10^3/uL (4.0-10.0)
[2021-01-06 14:04] LABS: ALBUMIN 3.7 GM/DL (3.2-5.2); ALT/SGPT 34 U/L (12-78); BILIRUBIN,TOTAL 0.3 MG/DL (0.2-1.0); BLOOD UREA NITROGEN 9 MG/DL (7-18); CALCIUM LEVEL 9.4 MG/DL (8.5-10.1); CARBON DIOXIDE LEVEL 28 MEQ/L (21-32); CHLORIDE LEVEL 106 MEQ/L (98-107); CHOLESTEROL LEVEL 174 MG/DL (<200); CHOLESTEROL RISK RATIO 5.117 (<5); FERRITIN 19 NG/ML (8-252); FREE T4 0.97 NG/DL (0.76-1.46); GLOMERULAR FILTRATION RATE > 60.0 (>51); GLUCOSE, FASTING 99 MG/DL (70-100); HDL CHOLESTEROL 34 MG/DL (>40); IRON (FE) 34 UG/DL (50-170); LDL CHOLESTEROL 79 MG/DL (<100); NON-HDL-C 140 MG/DL; PERCENT SATURATION 8.3 % (13.2-45.0); SODIUM LEVEL 139 MEQ/L (136-145); THYROID STIMULATING HORMONE 0.607 uIU/ML (0.358-3.740); TOTAL IRON BINDING CAPACITY 409 UG/DL (250-450); TOTAL PROTEIN 7.8 GM/DL (6.4-8.2); TRIGLYCERIDES LEVEL 306 MG/DL (<150)
[2021-01-06 14:06] LABS: FOLATE 7.4 NG/ML
[2021-01-06 14:11] LABS: VITAMIN B12 LEVEL 521 PG/ML
[2021-01-06 14:34] LABS: HEMOGLOBIN A1c 5.5 %
== END ==
LOC: M LAB 12:50
PROVIDERS: ATTEND Physician Assistant
DX: D64.9 Anemia, unspecified (principal)

== ENCOUNTER → 2021-04-19 | Outpatient (REF) | payer BC | LOC: M LAB REF 20:56 | PROVIDERS: ATTEND Physician Assistant Medical | DX: R50.9 Fever, unspecified (principal); R53.83 Other fatigue ==

== ENCOUNTER → 2021-09-23 | Outpatient (CLI) | payer BC ==
[2021-09-23 12:11] LABS: MEAN CORPUSCULAR HGB CONC 29.6 g/dl (32.0-36.5); MEAN CORPUSCULAR VOLUME 81.1 fl (80.0-96.0); PLATELET COUNT, AUTOMATED 409 10^3/uL (150-450); RED BLOOD COUNT 3.33 10^6/uL (4.00-5.40); WHITE BLOOD COUNT 8.1 10^3/uL (4.0-10.0)
[2021-09-23 12:43] LABS: ALBUMIN 3.6 GM/DL (3.2-5.2); ALT/SGPT 27 U/L (12-78); BILIRUBIN,TOTAL 0.3 MG/DL (0.2-1.0); BLOOD UREA NITROGEN 13 MG/DL (7-18); CALCIUM LEVEL 9.1 MG/DL (8.5-10.1); CARBON DIOXIDE LEVEL 25 MEQ/L (21-32); CHLORIDE LEVEL 108 MEQ/L (98-107); CHOLESTEROL LEVEL 193 MG/DL (<200); CHOLESTEROL RISK RATIO 4.595 (<5); CREATININE FOR GFR 0.97 MG/DL (0.55-1.30); FREE T4 0.96 NG/DL (0.76-1.46); GLOMERULAR FILTRATION RATE > 60.0 (>51); GLUCOSE, FASTING 99 MG/DL (70-100); HDL CHOLESTEROL 42 MG/DL (>40); LDL CHOLESTEROL 113 MG/DL (<100); NON-HDL-C 151 MG/DL; POTASSIUM SERUM 4.5 MEQ/L (3.5-5.1); SODIUM LEVEL 141 MEQ/L (136-145); TOTAL PROTEIN 7.6 GM/DL (6.4-8.2); TRIGLYCERIDES LEVEL 190 MG/DL (<150)
== END ==
LOC: M LAB 11:32
PROVIDERS: ATTEND Nurse Practitioner Family
DX: I10 Essential (primary) hypertension (principal)

== ENCOUNTER → 2021-09-26 | Outpatient (CLI) | payer BC ==
[2021-09-26 16:23] LABS: FOLATE 17.5 NG/ML
== END ==
LOC: M LAB 15:31
PROVIDERS: ATTEND Nurse Practitioner Family
DX: D64.9 Anemia, unspecified (principal)

== ENCOUNTER 2021-10-06 09:41 | Outpatient (CLI) | payer BC ==
[~2021-10-06] VITALS: Ht 162.6 cm; Wt 83.2 kg
[~2021-10-06 09:41] MED LIST changes: +TRAM100T14 PO; -TRAM100T18 PO
[2021-10-06 09:45] VITALS: BP 143/72
[2021-10-06] MEDS ORDERED: IRON SUCROSE 475 MG in NS 250 ML IV ONE (10:00)
[2021-10-06] MEDS ORDERED: IRON SUCROSE 25 MG in NS 25 ML IV ONE (10:00)
[2021-10-06] MEDS ORDERED: HYDR12.55 PO (10:28)
[2021-10-06] MEDS ORDERED: HYDR-3719 PO (10:28)
[2021-10-06] MEDS ORDERED: OMEP1CAP71 PO (10:30)
[2021-10-06 11:10] VITALS: BP 151/74
[2021-10-06 12:00] VITALS: BP 156/74
[2021-10-06 13:00] VITALS: BP 135/71
[2021-10-06 14:29] VITALS: BP 140/90
[2021-10-06 14:40] VITALS: BP 143/66
== END 2021-10-06 14:45 | disposition home or self-care (01) ==
LOC: M INFU 09:41
PROVIDERS: ATTEND Nurse Practitioner Family
DX: D64.9 Anemia, unspecified (principal); Z88.8 Allergy status to other drugs, medicaments and biological substances
CPT/HCPCS: 96365; 96366; J1756

== ENCOUNTER → 2021-10-10 | Outpatient (CLI) | payer BC ==
[~2021-10-10] MED LIST changes: +HYDR12.55 PO; +OMEP1CAP71 PO
== END ==
LOC: M CARPUL 08:40
PROVIDERS: ATTEND Nurse Practitioner Family
DX: I10 Essential (primary) hypertension (principal)

== ENCOUNTER → 2021-10-20 | Outpatient (REF) | payer BC ==
[~2021-10-20] MED LIST changes: +HYDR-3363 PO
[2021-10-20 16:34] LABS: C REACTIVE PROTEIN QUANTITATIV < 0.30 MG/DL (0.00-0.30)
== END ==
LOC: M SFHCCLAY 11:35
PROVIDERS: ATTEND Nurse Practitioner Family
DX: R53.83 Other fatigue (principal); D50.9 Iron deficiency anemia, unspecified

== ENCOUNTER → 2021-10-20 | Outpatient (CLI) | payer BC | LOC: M CLY 11:44 | PROVIDERS: ATTEND Nurse Practitioner Family | DX: R06.02 Shortness of breath (principal) ==

== ENCOUNTER → 2021-11-08 | Outpatient (CLI) | payer BC | LOC: M LABSMTC 09:58 | PROVIDERS: ATTEND Anesthesiology | DX: Z01.818 Encounter for other preprocedural examination (principal); Z11.52 Encounter for screening for COVID-19 ==

== ENCOUNTER 2021-11-13 10:24 | Day surgery (SDC) | payer BC ==
[~2021-11-13] VITALS: Ht 162.6 cm; Wt 82.9 kg
[2021-11-13] MEDS ORDERED: NS 1,000 ML IV ONE (11:20)
[2021-11-13] MEDS ORDERED: propofoL 200 MG/20 ML VIAL As Ordered ONE (11:22)
[2021-11-13] MEDS ORDERED: LIDOCAINE 2% 100MG/5ML SDV (FOR ANES.) As Ordered ONE (11:22)
[2021-11-13] MEDS ORDERED: fentaNYL 100 MCG/2 ML INJECTION As Ordered ONE (11:48)
[2021-11-13 12:35] VITALS: BP 163/74
== END 2021-11-13 12:50 | disposition home or self-care (01) ==
LOC: M OPP 10:24
PROVIDERS: ATTEND Internal Medicine Gastroenterology
DX: D50.9 Iron deficiency anemia, unspecified (principal); K64.8 Other hemorrhoids; K21.00 Gastro-esophageal reflux disease with esophagitis, without bleeding; K22.2 Esophageal obstruction; K29.70 Gastritis, unspecified, without bleeding; R12 Heartburn; Z79.899 Other long term (current) drug therapy; Z88.5 Allergy status to narcotic agent; Z80.3 Family history of malignant neoplasm of breast
CPT/HCPCS: 43239; 45378; 88305; J3010

== ENCOUNTER → 2021-12-08 | Outpatient (CLI) | payer BC | LOC: M CLY 14:21 | PROVIDERS: ATTEND Nurse Practitioner Family | DX: S86.011A Strain of right Achilles tendon, initial encounter (principal) ==

== ENCOUNTER → 2021-12-08 | Outpatient (REF) | payer BC | LOC: M SFHCCLAY 13:54 | PROVIDERS: ATTEND Nurse Practitioner Family | DX: R74.8 Abnormal levels of other serum enzymes (principal); Z53.9 Procedure and treatment not carried out, unspecified reason ==

== ENCOUNTER → 2021-12-29 | Outpatient (CLI) | payer BC ==
[2021-12-29 10:41] LABS: HEMATOCRIT 39.1 % (36.0-47.0); HEMOGLOBIN 12.5 g/dl (12.0-15.5); MEAN CORPUSCULAR HEMOGLOBIN 31.2 pg (27.0-33.0); MEAN CORPUSCULAR VOLUME 97.5 fl (80.0-96.0); PLATELET COUNT, AUTOMATED 267 10^3/uL (150-450); RED BLOOD COUNT 4.01 10^6/uL (4.00-5.40); WHITE BLOOD COUNT 6.6 10^3/uL (4.0-10.0)
[2021-12-29 11:07] LABS: ALT/SGPT 26 U/L (12-78); BILIRUBIN,TOTAL 0.2 MG/DL (0.2-1.0); BLOOD UREA NITROGEN 11 MG/DL (7-18); CALCIUM LEVEL 9.7 MG/DL (8.5-10.1); CARBON DIOXIDE LEVEL 28 MEQ/L (21-32); CHLORIDE LEVEL 109 MEQ/L (98-107); CREATININE FOR GFR 0.94 MG/DL (0.55-1.30); FERRITIN 285 NG/ML (8-252); GLOMERULAR FILTRATION RATE > 60.0 (>51); GLUCOSE, FASTING 92 MG/DL (70-100); IRON (FE) 60 UG/DL (50-170); PERCENT SATURATION 22.9 % (13.2-45.0); POTASSIUM SERUM 3.6 MEQ/L (3.5-5.1); SODIUM LEVEL 143 MEQ/L (136-145); TOTAL IRON BINDING CAPACITY 262 UG/DL (250-450); TOTAL PROTEIN 7.7 GM/DL (6.4-8.2)
== END ==
LOC: M LAB 09:35
PROVIDERS: ATTEND Nurse Practitioner Family
DX: D50.9 Iron deficiency anemia, unspecified (principal)

== ENCOUNTER → 2022-05-15 | Outpatient (REF) | payer BC ==
[2022-05-15 17:22] LABS: BASO # 0.1 10^3/uL (0.0-0.2); BASO % 0.9 % (0.0-1.0); EOS # 0.1 10^3/uL (0.0-0.5); EOS % 1.2 % (0.0-3.0); HEMATOCRIT 42.2 % (36.0-47.0); HEMOGLOBIN 13.9 g/dl (12.0-15.5); LYMPH # 2.1 10^3/uL (1.5-5.0); LYMPH % 31.8 % (24.0-44.0); MEAN CORPUSCULAR HEMOGLOBIN 31.4 pg (27.0-33.0); MEAN CORPUSCULAR HGB CONC 32.9 g/dl (32.0-36.5); MEAN CORPUSCULAR VOLUME 95.5 fl (80.0-96.0); MONO # 0.5 10^3/uL (0.0-0.8); NEUTROPHILS % 58.7 % (36.0-66.0); PLATELET COUNT, AUTOMATED 303 10^3/uL (150-450); RED BLOOD COUNT 4.42 10^6/uL (4.00-5.40); WHITE BLOOD COUNT 6.7 10^3/uL (4.0-10.0)
[2022-05-15 17:54] LABS: ALBUMIN 4.5 GM/DL (3.2-5.2); ALT/SGPT 30 U/L (12-78); BILIRUBIN,TOTAL 0.4 MG/DL (0.2-1.0); BLOOD UREA NITROGEN 12 MG/DL (7-18); CALCIUM LEVEL 10.3 MG/DL (8.5-10.1); CARBON DIOXIDE LEVEL 29 MEQ/L (21-32); CHLORIDE LEVEL 101 MEQ/L (98-107); GLOMERULAR FILTRATION RATE > 60.0 (>51); GLUCOSE, FASTING 115 MG/DL (70-100); POTASSIUM SERUM 4.1 MEQ/L (3.5-5.1); SODIUM LEVEL 135 MEQ/L (136-145); TOTAL PROTEIN 8.5 GM/DL (6.4-8.2)
[2022-05-15 18:12] LABS: ERYTHROCYTE SEDIMENTATION RATE 19 mm/hr (0-30)
[2022-05-15 18:40] LABS: HEPATITIS B SURFACE ANTIGEN NEGATIVE (NEGATIVE)
[2022-05-15 18:54] LABS: TOTAL 25(OH) VITAMIN D 22.8 NG/ML (30.0-100.0)
[2022-05-15 19:08] LABS: HEPATITIS B CORE ANTIBODY IGM NEGATIVE (NEGATIVE)
== END ==
LOC: M SFHCRHEU 13:30
PROVIDERS: ATTEND Internal Medicine Rheumatology
DX: R76.8 Other specified abnormal immunological findings in serum (principal); M25.50 Pain in unspecified joint

== ENCOUNTER → 2022-06-01 | Outpatient (CLI) | payer BC | LOC: M PLARAD 09:49 | PROVIDERS: ATTEND Internal Medicine Rheumatology | DX: R76.8 Other specified abnormal immunological findings in serum (principal); M25.50 Pain in unspecified joint ==

== ENCOUNTER → 2022-06-13 | Outpatient (CLI) | payer BC | LOC: M RAD 14:32 | PROVIDERS: ATTEND Internal Medicine Rheumatology | DX: R76.8 Other specified abnormal immunological findings in serum (principal) ==

== ENCOUNTER → 2023-03-15 | Outpatient (CLI) | payer BC | LOC: M WHC 13:36 | PROVIDERS: ATTEND Nurse Practitioner Family | DX: Z12.31 Encounter for screening mammogram for malignant neoplasm of breast (principal) ==

== ENCOUNTER → 2023-10-02 | Outpatient (CLI) | payer BC ==
[2023-10-02 15:13] LABS: BASO # 0.1 10^3/uL (0.0-0.2); BASO % 1.3 % (0.0-1.0); EOS # 0.1 10^3/uL (0.0-0.5); EOS % 2.5 % (0.0-3.0); HEMATOCRIT 35.9 % (36.0-47.0); HEMOGLOBIN 11.6 g/dl (12.0-15.5); LYMPH # 1.7 10^3/uL (1.5-5.0); LYMPH % 34.7 % (24.0-44.0); MEAN CORPUSCULAR HEMOGLOBIN 30.1 pg (27.0-33.0); MEAN CORPUSCULAR HGB CONC 32.3 g/dl (32.0-36.5); MONO # 0.4 10^3/uL (0.0-0.8); MONO % 7.8 % (2.0-8.0); NEUTROPHILS # 2.6 10^3/uL (1.5-8.5); NEUTROPHILS % 53.5 % (36.0-66.0); PLATELET COUNT, AUTOMATED 289 10^3/uL (150-450); RED BLOOD COUNT 3.86 10^6/uL (4.00-5.40); WHITE BLOOD COUNT 4.8 10^3/uL (4.0-10.0)
[2023-10-02 15:36] LABS: IRON (FE) 127 UG/DL (50-170); PERCENT SATURATION 35.4 % (13.2-45.0); TOTAL IRON BINDING CAPACITY 359 UG/DL (250-425)
[2023-10-02 15:37] LABS: ALBUMIN 3.6 G/DL (3.2-5.2); ALKALINE PHOSPHATASE 87 U/L (46-116); ALT/SGPT 39 U/L (7.0-40); AST/SGOT 31 U/L (<34); BILIRUBIN,TOTAL 0.5 MG/DL (0.3-1.2); BLOOD UREA NITROGEN 9 MG/DL (9-23); CALCIUM LEVEL 9.5 MG/DL (8.5-10.1); CARBON DIOXIDE LEVEL 29 MMOL/L (20-31); CHLORIDE LEVEL 106 MMOL/L (98-107); CHOLESTEROL LEVEL 171 MG/DL (<200); CHOLESTEROL RISK RATIO 3.74 (<5); CREATININE FOR GFR 0.71 MG/DL (0.55-1.30); GLOMERULAR FILTRATION RATE > 60.0 (>51); GLUCOSE, FASTING 105 MG/DL (60-100); HDL CHOLESTEROL 45.7 MG/DL (>40); LDL CHOLESTEROL 104.1 MG/DL (<100); NON-HDL-C 125.3 MG/DL; POTASSIUM SERUM 4.3 MMOL/L (3.5-5.1); SODIUM LEVEL 140 MMOL/L (136-145); TOTAL PROTEIN 6.9 G/DL (5.7-8.2); TRIGLYCERIDES LEVEL 106 MG/DL (<150)
[2023-10-02 15:38] LABS: FERRITIN 21.3 NG/ML (7.3-270.7)
== END ==
LOC: M LAB 14:36
PROVIDERS: ATTEND Nurse Practitioner Family
DX: D50.9 Iron deficiency anemia, unspecified (principal)

== ENCOUNTER → 2023-10-03 | Outpatient (CLI) | payer BC | LOC: M CLY 15:27 | PROVIDERS: ATTEND Nurse Practitioner Family | DX: M25.551 Pain in right hip (principal); M25.552 Pain in left hip ==

== ENCOUNTER → 2024-02-12 | Outpatient (CLI) | payer BC | LOC: M WUC 11:33 | PROVIDERS: ATTEND Physician Assistant | DX: R07.81 Pleurodynia (principal) ==

== ENCOUNTER → 2024-02-25 | Outpatient (REF) | payer BC ==
[2024-02-25 17:31] LABS: BASO # 0.1 10^3/uL (0.0-0.2); BASO % 0.9 % (0.0-1.0); EOS # 0.1 10^3/uL (0.0-0.5); EOS % 1.3 % (0.0-3.0); HEMATOCRIT 37.6 % (36.0-47.0); HEMOGLOBIN 12.4 g/dl (12.0-15.5); LYMPH # 1.8 10^3/uL (1.5-5.0); LYMPH % 27.8 % (24.0-44.0); MEAN CORPUSCULAR HEMOGLOBIN 31.2 pg (27.0-33.0); MEAN CORPUSCULAR VOLUME 94.5 fl (80.0-96.0); MONO # 0.5 10^3/uL (0.0-0.8); MONO % 8.5 % (2.0-8.0); NEUTROPHILS # 3.9 10^3/uL (1.5-8.5); PLATELET COUNT, AUTOMATED 320 10^3/uL (150-450); RED BLOOD COUNT 3.98 10^6/uL (4.00-5.40); WHITE BLOOD COUNT 6.4 10^3/uL (4.0-10.0)
[2024-02-25 17:44] LABS: HEMOGLOBIN A1c 5.3 % (4.0-6.0)
[2024-02-25 17:59] LABS: ALBUMIN 3.9 G/DL (3.2-5.2); ALKALINE PHOSPHATASE 92 U/L (46-116); ALT/SGPT 16 U/L (7.0-40); AST/SGOT 9 U/L (<34); BILIRUBIN,TOTAL 0.3 MG/DL (0.3-1.2); BLOOD UREA NITROGEN 14 MG/DL (9-23); CALCIUM LEVEL 9.9 MG/DL (8.5-10.1); CARBON DIOXIDE LEVEL 27 MMOL/L (20-31); CHLORIDE LEVEL 109 MMOL/L (98-107); CREATININE FOR GFR 0.67 MG/DL (0.55-1.30); FERRITIN 11.2 NG/ML (7.3-270.7); GLOMERULAR FILTRATION RATE > 60.0 (>51); GLUCOSE, FASTING 105 MG/DL (60-100); IRON (FE) 70 UG/DL (50-170); PERCENT SATURATION 18.4 % (13.2-45.0); POTASSIUM SERUM 4.1 MMOL/L (3.5-5.1); SODIUM LEVEL 140 MMOL/L (136-145); TOTAL IRON BINDING CAPACITY 380 UG/DL (250-425); TOTAL PROTEIN 7.3 G/DL (5.7-8.2)
[2024-02-25 18:00] LABS: THYROID STIMULATING HORMONE 0.586 uIU/ML (0.55-4.78)
== END ==
LOC: M SFHCCLAY 13:41
PROVIDERS: ATTEND Nurse Practitioner Family
DX: R63.4 Abnormal weight loss (principal); D50.9 Iron deficiency anemia, unspecified

== ENCOUNTER → 2024-10-07 | Outpatient (CLI) | payer BC ==
[~2024-10-07] MED LIST changes: +GABA-1172 PO; -GABA-282 PO
== END ==
LOC: M CLY 15:24
PROVIDERS: ATTEND Nurse Practitioner Family
DX: M54.2 Cervicalgia (principal)

== ENCOUNTER → 2024-10-07 | Outpatient (CLI) | payer BC | LOC: M CLY 15:09 | PROVIDERS: ATTEND Nurse Practitioner Family | DX: M54.9 Dorsalgia, unspecified (principal); M54.2 Cervicalgia ==

== ENCOUNTER → 2024-10-19 | Outpatient (CLI) | payer BC ==
[2024-10-19 10:50] LABS: BASO # 0.1 10^3/uL (0.0-0.2); EOS # 0.2 10^3/uL (0.0-0.5); EOS % 3.2 % (0.0-3.0); HEMATOCRIT 36.6 % (36.0-47.0); HEMOGLOBIN 11.5 g/dl (12.0-15.5); LYMPH # 2.3 10^3/uL (1.5-5.0); LYMPH % 31.5 % (24.0-44.0); MEAN CORPUSCULAR HEMOGLOBIN 30.3 pg (27.0-33.0); MEAN CORPUSCULAR HGB CONC 31.4 g/dl (32.0-36.5); MEAN CORPUSCULAR VOLUME 96.3 fl (80.0-96.0); MONO # 0.8 10^3/uL (0.0-0.8); MONO % 10.4 % (2.0-8.0); NEUTROPHILS # 3.9 10^3/uL (1.5-8.5); NEUTROPHILS % 53.6 % (36.0-66.0); PLATELET COUNT, AUTOMATED 255 10^3/uL (150-450); WHITE BLOOD COUNT 7.2 10^3/uL (4.0-10.0)
[2024-10-19 11:20] LABS: ALBUMIN 3.6 G/DL (3.2-5.2); ALKALINE PHOSPHATASE 90 U/L (35-104); ALT/SGPT 65 U/L (7.0-40); AST/SGOT 67 U/L (<34); BILIRUBIN,TOTAL 0.3 MG/DL (0.3-1.2); BLOOD UREA NITROGEN 22 MG/DL (9-23); CALCIUM LEVEL 9.5 MG/DL (8.5-10.1); CARBON DIOXIDE LEVEL 28 MMOL/L (20-31); CHLORIDE LEVEL 103 MMOL/L (98-107); CHOLESTEROL LEVEL 211 MG/DL (<200); CREATININE FOR GFR 0.76 MG/DL (0.55-1.30); GLOMERULAR FILTRATION RATE > 60.0 (>51); GLUCOSE, FASTING 102 MG/DL (60-100); IRON (FE) 106 UG/DL (50-170); LDL CHOLESTEROL 112.8 MG/DL (<100); PERCENT SATURATION 29.1 % (13.2-45.0); POTASSIUM SERUM 4.3 MMOL/L (3.5-5.1); SODIUM LEVEL 141 MMOL/L (136-145); TOTAL IRON BINDING CAPACITY 364 UG/DL (250-425); TOTAL PROTEIN 7.3 G/DL (5.7-8.2); TRIGLYCERIDES LEVEL 246 MG/DL (<150)
[2024-10-19 11:21] LABS: FERRITIN 35.1 NG/ML (7.3-270.7); FREE T4 1.12 NG/DL (0.89-1.76); THYROID STIMULATING HORMONE 4.421 uIU/ML (0.55-4.78)
== END ==
LOC: M LAB 10:10
PROVIDERS: ATTEND Nurse Practitioner Family
DX: M54.9 Dorsalgia, unspecified (principal)

== ENCOUNTER → 2024-11-13 | Outpatient (CLI) | payer BC ==
[~2024-11-13] MED LIST changes: +ISOVUE-370 76% 100ML VIAL As Ordered ONE
== END ==
LOC: M RAD 10:09
PROVIDERS: ATTEND Nurse Practitioner Family
DX: R13.10 Dysphagia, unspecified (principal); R59.9 Enlarged lymph nodes, unspecified; J03.90 Acute tonsillitis, unspecified
CPT/HCPCS: 70491; Q9967

== ENCOUNTER → 2025-04-16 | Outpatient (REF) | payer BC ==
[~2025-04-16] MED LIST changes: -IBUP-1022 PO; +IBUP600T42 PO; -ISOVUE-370 76% 100ML VIAL As Ordered ONE
[2025-04-16 18:08] LABS: ALT/SGPT 37 U/L (7.0-40); AST/SGOT 38 U/L (<34); CALCIUM LEVEL 10.0 MG/DL (8.5-10.1); CARBON DIOXIDE LEVEL 27 MMOL/L (20-31); CHLORIDE LEVEL 104 MMOL/L (98-107); CHOLESTEROL LEVEL 185 MG/DL (<200); CHOLESTEROL RISK RATIO 3.67 (<5); CREATININE FOR GFR 0.68 MG/DL (0.55-1.30); GLOMERULAR FILTRATION RATE > 90.0 (>51); LDL CHOLESTEROL 102.1 MG/DL (<100); NON-HDL-C 134.7 MG/DL; POTASSIUM SERUM 4.4 MMOL/L (3.5-5.1); SODIUM LEVEL 141 MMOL/L (136-145); TRIGLYCERIDES LEVEL 163 MG/DL (<150)
[2025-04-16 18:09] LABS: BASO # 0.1 10^3/uL (0.0-0.2); BASO % 0.9 % (0.0-1.0); EOS # 0.1 10^3/uL (0.0-0.5); EOS % 1.5 % (0.0-3.0); LYMPH # 1.6 10^3/uL (1.5-5.0); LYMPH % 21.7 % (24.0-44.0); MONO # 0.5 10^3/uL (0.0-0.8); MONO % 7.2 % (2.0-8.0); NEUTROPHILS # 5.2 10^3/uL (1.5-8.5); NEUTROPHILS % 68.4 % (36.0-66.0); PLATELET COUNT, AUTOMATED 295 10^3/uL (150-450)
[2025-04-16 18:31] LABS: ESTIMATED AVERAGE GLUCOSE 108.0 MG/DL (60-110)
== END ==
LOC: M SFHCCLAY 10:33
PROVIDERS: ATTEND Nurse Practitioner Family
DX: M54.2 Cervicalgia (principal); F41.9 Anxiety disorder, unspecified; I10 Essential (primary) hypertension; D50.9 Iron deficiency anemia, unspecified; R13.10 Dysphagia, unspecified; K21.9 Gastro-esophageal reflux disease without esophagitis; F11.90 Opioid use, unspecified, uncomplicated